=== PATIENT | female | born 2000 | race Caucasian/White ===

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

== ENCOUNTER 2019-09-21 21:51 | Emergency (ER) | payer MEDICAID, MEDICARE ==
[~2019-09-21] VITALS: Ht 160 cm; Wt 94.0 kg
[2019-09-21 22:10] VITALS: BP 128/75
== END 2019-09-22 01:10 | disposition home or self-care (01) ==
LOC: ER 21:51
DX: R07.89 Other chest pain (principal); F41.8 Other specified anxiety disorders; F43.9 Reaction to severe stress, unspecified
CPT/HCPCS: 99281